=== PATIENT | female | born 1950 | race Caucasian/White ===

== ENCOUNTER 2018-04-06 19:52 | Emergency (ER) | payer OTHER, MEDICAID ==
[~2018-04-06] VITALS: Ht 152.4 cm; Wt 78.9 kg
[2018-04-06 20:06] VITALS: Ht 152.4 cm; Wt 78.9 kg
[2018-04-06 21:05] LABS: CARBON DIOXIDE 26.8 mmol/L (21-32); CHLORIDE SERUM 108 mmol/L (98-107); CREATININE SERUM 0.8 mg/dL (0.6-1.0); GFR1 > 60 mL/min; GLUCOSE SERUM 135 mg/dL (74-106); POTASSIUM SERUM 4.3 mmol/L (3.5-5.1); SODIUM SERUM 142 mmol/L (136-145)
[2018-04-06 21:11] LABS: ALBUMIN 3.6 g/dL (3.4-5.0); ALKALINE PHOSPHATASE 112 U/L (46-116); ALT/SGPT 36 U/L (14-59); AST/SGOT 51 U/L (15-37); BILIRUBIN TOTAL 0.19 mg/dL (0.20-1.00); LIPASE 146 IU/L (73-393); TOTAL PROTEIN, SERUM 7.6 g/dL (6.4-8.2)
[2018-04-06 22:09] LABS: BASOPHIL % 0.5 % (0-2); PLATELET COUNT 218 x10^3mcL (130-400); RED CELL DISTRIBUTION WIDTH 13.2 % (11.5-14.5)
[2018-04-06 22:30] VITALS: BP 146/74
== END 2018-04-06 22:30 | disposition home or self-care (01) ==
LOC: ED 19:52
PROVIDERS: Emergency Medicine
DX: A08.4 Viral intestinal infection, unspecified (principal); I10 Essential (primary) hypertension; E78.00 Pure hypercholesterolemia, unspecified; R73.03 Prediabetes
CPT/HCPCS: J2405; J7030